=== PATIENT | female | born 1940 | race Hispanic/Latino ===

== ENCOUNTER → 2018-04-07 | Outpatient (CLI) | payer OTHER, MEDICARE ==
[~2018-04-07] MED LIST: ENAL2.5T PO; MONT10TA24 PO; PANT40TA25 PO; SIMV20TA6 PO
== END | disposition home or self-care (01) ==
LOC: RAH 13:50
PROVIDERS: ATTEND Internal Medicine
DX: M47.892 Other spondylosis, cervical region (principal)
CPT/HCPCS: 72040

== ENCOUNTER → 2018-05-17 | Outpatient (CLI) | payer OTHER, MEDICARE | END | disposition home or self-care (01) | LOC: RAH 14:59 | PROVIDERS: ATTEND Internal Medicine | DX: M25.561 Pain in right knee (principal) | CPT/HCPCS: 73562 ==

== ENCOUNTER → 2019-03-15 | Outpatient (CLI) | payer OTHER, MEDICARE | END | disposition home or self-care (01) | LOC: RAH 13:34 | PROVIDERS: ATTEND Internal Medicine | DX: M85.841 Other specified disorders of bone density and structure, right hand (principal); M19.011 Primary osteoarthritis, right shoulder | CPT/HCPCS: 73030 ==

== ENCOUNTER 2020-04-07 05:50 | Day surgery (SDC) | payer OTHER, MEDICARE ==
[2020-03-31 10:46] LABS: BASOPHILS % (AUTO) 0.3 % (0.0-5.0); EOSINOPHILS % (AUTO) 2.1 % (0.0-8.0); LYMPHOCYTES % (AUTO) 31.3 % (21.0-51.0); MEAN CORPUSCULAR HEMOGLOBIN 28.7 pg (27.0-33.0); MEAN CORPUSCULAR HGB CONC 32.4 g/dL (32.0-36.0); MEAN CORPUSCULAR VOLUME 88.4 fL (79-99); MONOCYTES % (AUTO) 7.9 % (3.0-13.0); NEUTROPHILS % (AUTO) 58.1 % (40.0-77.0); PLATELET COUNT (AUTO) 222 K/uL (130-400); RED BLOOD CELL COUNT(AUTO) 4.64 MIL/uL (4.00-5.50); RED CELL DISTRIBUTION WIDTH 13.6 % (11.0-15.5); WHITE BLOOD COUNT (AUTO) 6.1 K/uL (4.8-10.8)
[2020-03-31 11:05] LABS: CREATININE 0.9 mg/dL (0.5-1.5); POTASSIUM 4.9 mmol/L (3.5-5.1)
[2020-04-04 10:40] VITALS: BP 139/59
[~2020-04-07] VITALS: Ht 152.4 cm; Wt 74.8 kg
[2020-04-07] VITALS (19 sets, daily range): BP systolic 115–148; BP diastolic 49–76
[~2020-04-07 05:50] MED LIST changes: +AEC81 PO; +ATOR10TA69 PO; +CEFAZOLIN SODIUM 1 GM VIAL IVP SCH; +CIME400T PO; +CYAN250010 PO; -ENAL2.5T PO; +MEMA5TAB PO; -MONT10TA24 PO; -PANT40TA25 PO; -SIMV20TA6 PO; +TRAM50TA4 PO
[2020-04-07] MEDS ORDERED: LACTATED RINGERS 1000ML 0 ML IV ONE (06:19)
[2020-04-07] MEDS ORDERED: SODIUM CHLORIDE 0.9% 1000ML 1,000 ML IV ONE (06:23)
[2020-04-07] MEDS ORDERED: LIDOCAINE PF 2% 5ML ABBOJECT ONE (08:44)
[2020-04-07] MEDS ORDERED: FENTANYL CITRATE PF 50 MCG/1 ML 2ML VIAL ONE (08:45)
[2020-04-07] MEDS ORDERED: PROPOFOL 10 MG/ML 20ML VIAL IV ONE (08:45)
[2020-04-07] MEDS ORDERED: DEXAMETHASONE SOD PHOSPHATE 10MG/ML 1ML VIAL ONE (08:45)
[2020-04-07] MEDS ORDERED: MIDAZOLAM HCL 1 MG/ML 2ML VIAL ONE (08:45)
[2020-04-07] MEDS ORDERED: ROCURONIUM 10MG/1ML SYR 10 MG/ML ML ONE (08:45)
[2020-04-07] MEDS ORDERED: ONDANSETRON HCL 4 MG/2 ML VIAL ONE (08:45)
[2020-04-07] MEDS ORDERED: EPHEDRINE SULFATE 50 MG/ML AMPULE ONE (09:08)
[2020-04-07] MEDS ORDERED: NEOSTIGMINE 5MG/5ML SYR IV ONE (09:41)
[2020-04-07] MEDS ORDERED: GLYCOPYRROLATE 1 MG/5 ML SYRINGE ONE (09:41)
[2020-04-07] MEDS ORDERED: CEPH500B PO (09:47)
[2020-04-07] MEDS ORDERED: MEPERIDINE-PF 25 MG/ML SYG ONE ×2 (10:27→10:34)
--- NOTE | 2020-04-07 12:15 | NUR ---
UPON DISCHARGE PATIENT SON JARROD HAD MULTIPLE QUESTIONS, I ANSWERED ACCORDING TO REPORTS AND NURSING ASSESSMENT , DOCTOR EDDIE WAS NOTIFIED AND HE ATTEMPTED TO CALL FAMILY BUT NO ANSWER.
== END 2020-04-07 12:22 | disposition home or self-care (01) ==
LOC: DAH 05:50
PROVIDERS: ATTEND Orthopaedic Surgery
DX: S83.241A Other tear of medial meniscus, current injury, right knee, initial encounter (principal); S83.281A Other tear of lateral meniscus, current injury, right knee, initial encounter; M22.41 Chondromalacia patellae, right knee; G89.29 Other chronic pain; E11.9 Type 2 diabetes mellitus without complications; I10 Essential (primary) hypertension; K21.9 Gastro-esophageal reflux disease without esophagitis; E78.5 Hyperlipidemia, unspecified; Z96.652 Presence of left artificial knee joint; Z98.890 Other specified postprocedural states; X58.XXXA Exposure to other specified factors, initial encounter; Y93.89 Activity, other specified; Y92.89 Other specified places as the place of occurrence of the external cause; Y99.8 Other external cause status; Z20.828 Contact with and (suspected) exposure to other viral communicable diseases
CPT/HCPCS: 29880; 36415 ×2; 80048; 82948 ×3; 85025; A4215; A4221; A4222; A4223; A4606; A4649 ×2; A4663; A6223; C9803; J0690; J1100; J2001; J2175 ×2; J2250; J2405; J2704; J2710; J3010; J3490 ×2; J7030; J7120; U0003

== ENCOUNTER 2021-05-06 06:18 | Day surgery (SDC) | payer OTHER, MEDICARE ==
[2021-05-04 10:24] LABS: CREATININE 1.1 mg/dL (0.5-1.5); POTASSIUM 4.3 mmol/L (3.5-5.1)
[2021-05-05 10:57] VITALS: BP 150/64
[~2021-05-06] VITALS: Ht 152.4 cm; Wt 74.6 kg
[2021-05-06] VITALS (16 sets, daily range): BP systolic 119–153; BP diastolic 54–78
[~2021-05-06 06:18] MED LIST changes: -AEC81 PO; +ASCO500T20 PO; -ATOR10TA69 PO; -CIME400T PO; -CYAN250010 PO; +CYAN50009 PO; +GLUCOSAMINE PO; +MAGN250T10 PO; -MEMA5TAB PO; -TRAM50TA4 PO; +VITAMIN D3 PO
[2021-05-06] MEDS ORDERED: LACTATED RINGERS 1000ML 1,000 ML IV ONE (07:32)
[2021-05-06] MEDS ORDERED: LIDOCAINE PF 100MG/5ML (2%) SYRINGE 5ML ONE (08:25)
[2021-05-06] MEDS ORDERED: FENTANYL CITRATE PF 50 MCG/1 ML 2ML VIAL ONE (08:25)
[2021-05-06] MEDS ORDERED: PROPOFOL 10 MG/ML 20ML VIAL IV ONE (08:25)
[2021-05-06] MEDS ORDERED: GLYCOPYRROLATE 1 MG/5 ML SYRINGE ONE (09:15)
[2021-05-06] MEDS ORDERED: EPHEDRINE SULFATE 50 MG/ML AMPULE ONE (09:17)
[2021-05-06] MEDS ORDERED: ONDANSETRON 4MG INJ ONE (09:49)
[2021-05-06] MEDS ORDERED: TRAM50TA4 PO (10:21)
[2021-05-06] MEDS ORDERED: CEPH500B PO (10:21)
[2021-05-06] MEDS ORDERED: MEPERIDINE-PF 25 MG/ML SYG ONE (10:24)
== END 2021-05-06 11:45 | disposition home or self-care (01) ==
LOC: DAH 06:18
PROVIDERS: ATTEND Orthopaedic Surgery
DX: M23.322 Other meniscus derangements, posterior horn of medial meniscus, left knee (principal); Z20.822 Contact with and (suspected) exposure to COVID-19; M23.342 Other meniscus derangements, anterior horn of lateral meniscus, left knee; M94.262 Chondromalacia, left knee; G89.29 Other chronic pain; I10 Essential (primary) hypertension; K21.9 Gastro-esophageal reflux disease without esophagitis; E11.9 Type 2 diabetes mellitus without complications; E78.5 Hyperlipidemia, unspecified; Z83.3 Family history of diabetes mellitus; Z80.9 Family history of malignant neoplasm, unspecified; Z88.6 Allergy status to analgesic agent; Z98.890 Other specified postprocedural states
CPT/HCPCS: 29880; 36415; 80048; 82948 ×2; 87635; A4215; A4221; A4222; A4223; A4649; A4663; A4930 ×2; A6223; C9803; J0690; J2001; J2175; J2405; J2704; J3010; J3490 ×2; J7120